=== PATIENT | female | born 1950 | race Caucasian/White ===

== ENCOUNTER → 2020-06-02 | Outpatient (CLI) | payer MEDICARE, OTHER ==
[~2020-06-02] MED LIST: ATOR1TAB21 PO; BUPR150T3 PO; CETI-24 PO; FOLI1TAB11 PO; HYDR12CA PO; ISOVUE-370 76% 100ML VIAL ONE; LEVO88TA3 PO; RA B1TAB7 PO; VALS80TA PO; VENL75CA47 PO
--- NOTE | 2020-07-25 13:45 | REP ---
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 COMPARISON: None. HISTORY: Patient reportedly had left lower lobe lung carcinoma with resection. There are no comparison studies. The current study is performed for restaging. FINDINGS: There are surgical clips in the left hilus and there is volume loss in the left hemithorax, compatible with left lower lobectomy. There are no lung nodules or masses. There are no infiltrates. There are no pleural effusions. There is no mediastinal or hilar lymph node enlargement. There is no axillary lymph node enlargement. The thoracic aorta is unremarkable. The cardiac size is normal. There is no pericardial effusion. UPPER ABDOMEN: There is no adrenal nodule or mass. The visualized areas of the liver demonstrate two cysts in the medial segment of the hepatic left lobe, one measuring up to 2.0 cm and the other up to 0.9 cm. The visualized hepatic parenchyma is otherwise unremarkable. Visualized areas of the gallbladder, pancreas, and spleen are unremarkable. There is no adrenal nodule or mass. There are no lytic, blastic, or destructive skeletal findings. IMPRESSION: There are findings are compatible with left lower lobectomy. There are no lung masses or nodules. There are no infiltrates or pleural effusions. There is no adenopathy. There are two cysts in the medial segment of the hepatic left lobe. There is no adrenal mass. MTDD
== END ==
LOC: M RAD 02:00
PROVIDERS: ATTEND Internal Medicine Hematology & Oncology
DX: C34.12 Malignant neoplasm of upper lobe, left bronchus or lung (principal)
CPT/HCPCS: 71260; Q9967